=== PATIENT | male | born 1995 | race Caucasian/White ===

== ENCOUNTER → 2017-04-05 | Outpatient (CLI) | payer OTHER ==
[2017-04-05 11:01] LABS: BASO % 0.5 % (0.0-1.0); EOS # 0.2 10*3/uL (0.0-0.4); EOS % 2.4 % (1.0-4.0); HEMOGLOBIN 16.3 g/dl (14.0-18.0); LYMPH # 2.5 10*3/uL (1.3-4.4); LYMPH % 39.6 % (27.0-41.0); MEAN CELL VOLUME 92.8 fl (80.0-94.0); MEAN CORPUSCULAR HGB 30.9 pg (27.0-31.0); MEAN CORPUSCULAR HGB CONC 33.3 g/dl (33.0-37.0); MEAN PLATELET VOLUME 9.3 fl (9.6-12.3); MONO # 0.6 10*3/uL (0.1-1.0); MONO % 9.5 % (3.0-9.0); NEUT % 47.7 % (47.0-73.0); PLATELET COUNT AUTOMATED 277 10*3/uL (130-400); RED BLOOD COUNT 5.28 10*6/uL (4.50-5.90); RED CELL DISTRI WIDTH 12.8 % (0-14.5); WHITE BLOOD COUNT 6.3 10*3/uL (4.8-10.8)
[2017-04-05 11:31] LABS: ALKALINE PHOSPHATASE 58 U/L (45-117); BUN 17 mg/dl (7-24); CARBON DIOXIDE 27 mmol/L (21-32); CHLORIDE 107 mmol/L (98-107); CHOLESTEROL 188 mg/dL (<200); EST GLOM FILT AFRICAN AMERICAN > 60 ml/min; GLUCOSE 97 mg/dL (65-99); HDL CHOLESTEROL 51 mg/dl (40-60); LDL CHOLESTEROL 123 mg/dL (9-159); POTASSIUM 4.1 mmol/L (3.5-5.1); SGOT/AST 16 IU/L (3-35); SGPT/ALT 32 U/L (12-78); SODIUM 140 mmol/L (136-145); TOTAL PROTEIN 7.3 gm/dL (6.4-8.2); TRIGLYCERIDES 68 mg/dl (<150); VLDL CHOLESTEROL 14 mg/dL (6-40)
[2017-04-05 11:38] LABS: THYROID STIM HORMONE (HS) 0.854 uIU/ml (0.358-4.75)
== END | disposition home or self-care (01) ==
LOC: LAB 10:31
PROVIDERS: Internal Medicine
DX: R68.82 Decreased libido (principal); R53.82 Chronic fatigue, unspecified; R79.9 Abnormal finding of blood chemistry, unspecified

== ENCOUNTER → 2017-04-23 | Outpatient (CLI) | payer OTHER ==
[2017-04-24 07:06] LABS: FOLLICLE STIMULATING HORMONE 4.6 mIU/mL (1.5-12.4); LUTEINIZING HORMONE 004283 5.8 mIU/mL (1.7-8.6)
[2017-04-24 22:07] LABS: TESTOSTERONE FREE, (DIRECT) 15.1 pg/mL (9.3-26.5)
== END | disposition home or self-care (01) ==
LOC: LAB 11:10
PROVIDERS: Internal Medicine
DX: E29.1 Testicular hypofunction (principal)

== ENCOUNTER → 2017-05-31 | Outpatient (CLI) | payer OTHER | END | disposition home or self-care (01) | LOC: MRI 07:51 | DX: E23.0 Hypopituitarism (principal) ==

== ENCOUNTER → 2017-08-31 | Outpatient (CLI) | payer OTHER | END | disposition home or self-care (01) | LOC: LAB 08:00 | DX: J11.1 Influenza due to unidentified influenza virus with other respiratory manifestations (principal) ==

== ENCOUNTER → 2017-12-02 | Outpatient (CLI) | payer OTHER ==
[2017-12-02 09:33] LABS: VITAMIN D, 25-HYDROXY 38.3 ng/mL (30-100)
[2017-12-03 06:13] LABS: ESTRADIOL 68.9 pg/mL (7.6-42.6); PROLACTIN 004465 1.2 ng/mL (4.0-15.2)
== END | disposition home or self-care (01) ==
LOC: LAB 07:56
PROVIDERS: Internal Medicine
DX: E55.9 Vitamin D deficiency, unspecified (principal); R68.82 Decreased libido; R53.83 Other fatigue; E23.0 Hypopituitarism

== ENCOUNTER → 2018-07-11 | Outpatient (CLI) | payer OTHER | LOC: RESCLI 09:16 | DX: L98.9 Disorder of the skin and subcutaneous tissue, unspecified (principal) ==

== ENCOUNTER → 2018-10-14 | Outpatient (CLI) | payer OTHER ==
[~2018-10-14] MED LIST: KEFLEX500 M1 PO; Motrin,Rufen800 MG PO; NORCO 5-325 TA1 EACH PO
[2018-10-14 09:03] LABS: BUN 17 mg/dl (7-24); CHLORIDE 107 mmol/L (98-107); CREATININE 1.27 mg/dL (0.70-1.30); FREE T4 0.89 ng/dl (0.76-1.46); POTASSIUM 3.9 mmol/L (3.5-5.1); SODIUM 141 mmol/L (136-145)
[2018-10-14 09:09] LABS: THYROID STIM HORMONE (HS) 0.857 uIU/ml (0.358-4.75)
[2018-10-15 07:07] LABS: PROLACTIN 004465 15.6 ng/mL (4.0-15.2)
== END | disposition home or self-care (01) ==
LOC: LAB 08:11
PROVIDERS: Internal Medicine
DX: E55.9 Vitamin D deficiency, unspecified (principal); D35.2 Benign neoplasm of pituitary gland; E34.9 Endocrine disorder, unspecified; E29.1 Testicular hypofunction

== ENCOUNTER 2018-10-17 10:54 | Emergency (ER) | payer OTHER ==
[~2018-10-17] VITALS: Ht 177.8 cm; Wt 106.1 kg
[2018-10-17] MEDS ORDERED: Motrin,Rufen800 MG PO (12:34)
[2018-10-17] MEDS ORDERED: KEFLEX500 M1 PO (12:34)
[2018-10-17] MEDS ORDERED: NORCO 5-325 TA1 EACH PO (12:35)
== END 2018-10-17 12:52 | disposition home or self-care (01) ==
LOC: ED 10:54
DX: S62.521B Displaced fracture of distal phalanx of right thumb, initial encounter for open fracture (principal); S61.011A Laceration without foreign body of right thumb without damage to nail, initial encounter; W24.0XXA Contact with lifting devices, not elsewhere classified, initial encounter; Y93.B9 Activity, other involving muscle strengthening exercises; Y92.39 Other specified sports and athletic area as the place of occurrence of the external cause; Y99.8 Other external cause status

== ENCOUNTER → 2019-08-31 | Outpatient (CLI) | payer OTHER | END | disposition home or self-care (01) | LOC: RESCLI 13:05 | DX: Z00.00 Encounter for general adult medical examination without abnormal findings (principal); L98.9 Disorder of the skin and subcutaneous tissue, unspecified ==

== ENCOUNTER → 2019-09-06 | Outpatient (CLI) | payer OTHER ==
[2019-09-06 07:38] LABS: BASO # 0.1 10*3/uL (0.0-0.1); BASO % 0.5 % (0.0-1.0); EOS # 0.2 10*3/uL (0.0-0.4); EOS % 2.4 % (1.0-4.0); HEMATOCRIT 45.7 % (42.0-52.0); HEMOGLOBIN 15.1 g/dl (14.0-18.0); LYMPH # 4.7 10*3/uL (1.3-4.4); LYMPH % 46.4 % (27.0-41.0); MEAN CELL VOLUME 94.4 fl (80.0-94.0); MEAN CORPUSCULAR HGB 31.2 pg (27.0-31.0); MEAN PLATELET VOLUME 9.9 fl (9.6-12.3); MONO # 0.6 10*3/uL (0.1-1.0); MONO % 6.1 % (3.0-9.0); NEUT # 4.5 10*3/uL (2.3-7.9); NEUT % 44.3 % (47.0-73.0); PLATELET COUNT AUTOMATED 340 10*3/uL (130-400); RED BLOOD COUNT 4.84 10*6/uL (4.50-5.90); RED CELL DISTRI WIDTH 12.5 % (0-14.5); WHITE BLOOD COUNT 10.1 10*3/uL (4.8-10.8)
[2019-09-06 07:51] LABS: ALBUMIN 4.5 gm/dl (3.1-4.5); ALKALINE PHOSPHATASE 50 U/L (45-117); BUN 11 mg/dl (7-24); CHLORIDE 105 mmol/L (98-107); CHOLESTEROL 179 mg/dL (<200); CREATININE 1.24 mg/dL (0.70-1.30); FREE T4 0.93 ng/dl (0.76-1.46); HDL CHOLESTEROL 63 mg/dl (40-60); LDL CHOLESTEROL 104 mg/dL (9-159); POTASSIUM 3.7 mmol/L (3.5-5.1); SGOT/AST 9 IU/L (3-35); SGPT/ALT 31 U/L (12-78); SODIUM 139 mmol/L (136-145); TOTAL PROTEIN 7.4 gm/dL (6.4-8.2); TRIGLYCERIDES 58 mg/dl (<150); VLDL CHOLESTEROL 12 mg/dL (6-40)
[2019-09-08 07:09] LABS: PROLACTIN 004465 11.3 ng/mL (4.0-15.2)
== END | disposition home or self-care (01) ==
LOC: LAB 06:09
PROVIDERS: Internal Medicine
DX: Z13.220 Encounter for screening for lipoid disorders (principal); E29.1 Testicular hypofunction; D35.2 Benign neoplasm of pituitary gland

== ENCOUNTER → 2019-10-02 | Day surgery (SDC) | payer OTHER ==
[~2019-10-02] VITALS: Ht 177.8 cm; Wt 93.9 kg
[2019-10-02 07:54] VITALS: BP 127/64
[2019-10-02 08:05] VITALS: BP 126/49
[2019-10-02 08:10] VITALS: BP 129/65
[2019-10-02 08:15] VITALS: BP 119/53
[2019-10-02 08:20] VITALS: BP 120/76
[2019-10-02 08:25] VITALS: BP 118/61
== END | disposition home or self-care (01) ==
LOC: SDC 09-30 13:15
DX: I78.1 Nevus, non-neoplastic (principal); L98.8 Other specified disorders of the skin and subcutaneous tissue

== ENCOUNTER → 2021-04-11 | Outpatient (CLI) | payer OTHER | END | disposition home or self-care (01) | LOC: RESCLI 01:04 | PROVIDERS: ATTEND Internal Medicine | DX: D35.2 Benign neoplasm of pituitary gland (principal); N62 Hypertrophy of breast; F17.210 Nicotine dependence, cigarettes, uncomplicated; Z72.89 Other problems related to lifestyle; Z98.890 Other specified postprocedural states ==

== ENCOUNTER → 2021-04-12 | Outpatient (CLI) | payer OTHER | END | disposition home or self-care (01) | LOC: LAB 06:31 | PROVIDERS: ATTEND Student in an Organized Health Care Education/Training Program | DX: N62 Hypertrophy of breast (principal); D35.2 Benign neoplasm of pituitary gland ==

== ENCOUNTER → 2021-04-18 | Outpatient (CLI) | payer OTHER | END | disposition home or self-care (01) | LOC: RESCLI 00:53 | PROVIDERS: ATTEND Internal Medicine | DX: D35.2 Benign neoplasm of pituitary gland (principal); N62 Hypertrophy of breast; R68.82 Decreased libido; F17.210 Nicotine dependence, cigarettes, uncomplicated; Z79.899 Other long term (current) drug therapy; Z98.890 Other specified postprocedural states ==

== ENCOUNTER → 2021-04-25 | Outpatient (CLI) | payer OTHER | END | disposition home or self-care (01) | LOC: RESCLI 01:41 | PROVIDERS: ATTEND Internal Medicine | DX: N62 Hypertrophy of breast (principal); R68.82 Decreased libido; F17.210 Nicotine dependence, cigarettes, uncomplicated; Z79.899 Other long term (current) drug therapy; Z98.890 Other specified postprocedural states ==

== ENCOUNTER → 2021-05-04 | Outpatient (CLI) | payer OTHER ==
[2021-05-05 05:06] LABS: HEPATITIS B SURFACE AB Reactive (.)
== END | disposition home or self-care (01) ==
LOC: LAB 07:56
PROVIDERS: ATTEND Internal Medicine
DX: Z77.21 Contact with and (suspected) exposure to potentially hazardous body fluids (principal)

== ENCOUNTER → 2021-05-16 | Outpatient (CLI) | payer OTHER | END | disposition home or self-care (01) | LOC: RESCLI 00:31 | PROVIDERS: ATTEND Internal Medicine | DX: R68.82 Decreased libido (principal); Z79.899 Other long term (current) drug therapy; Z72.0 Tobacco use ==

== ENCOUNTER → 2021-06-08 | Outpatient (CLI) | payer OTHER ==
[2021-06-14 00:06] LABS: TESTOSTERONE FREE, (DIRECT) 31.9 pg/mL (9.3-26.5)
== END | disposition home or self-care (01) ==
LOC: LAB 06:35
PROVIDERS: ATTEND Internal Medicine
DX: R68.82 Decreased libido (principal)

== ENCOUNTER → 2021-06-16 | Outpatient (CLI) | payer OTHER | END | disposition home or self-care (01) | LOC: RESCLI 01:21 | PROVIDERS: ATTEND Internal Medicine | DX: R68.82 Decreased libido (principal); Z00.00 Encounter for general adult medical examination without abnormal findings; E66.9 Obesity, unspecified; F17.210 Nicotine dependence, cigarettes, uncomplicated; Z72.89 Other problems related to lifestyle; Z79.899 Other long term (current) drug therapy ==

== ENCOUNTER → 2022-05-04 | Outpatient (CLI) | payer BC ==
[2022-05-04 07:34] LABS: BASO # 0.1 10*3/uL (0.0-0.1); BASO % 0.7 % (0.0-1.0); EOS # 0.2 10*3/uL (0.0-0.4); EOS % 2.5 % (1.0-4.0); HEMATOCRIT 47.8 % (42.0-52.0); LYMPH # 2.3 10*3/uL (1.3-4.4); LYMPH % 34.5 % (27.0-41.0); MEAN CORPUSCULAR HGB 30.9 pg (27.0-31.0); MEAN CORPUSCULAR HGB CONC 33.3 g/dl (33.0-37.0); MEAN PLATELET VOLUME 8.9 fl (9.6-12.3); MONO # 0.5 10*3/uL (0.1-1.0); MONO % 7.3 % (3.0-9.0); NEUT # 3.7 10*3/uL (2.3-7.9); NEUT % 54.7 % (47.0-73.0); PLATELET COUNT AUTOMATED 330 10*3/uL (130-400); RED BLOOD COUNT 5.14 10*6/uL (4.50-5.90); RED CELL DISTRI WIDTH 12.7 % (0-14.5); WHITE BLOOD COUNT 6.7 10*3/uL (4.8-10.8)
[2022-05-04 07:57] LABS: BUN 26 mg/dl (7-24); CHLORIDE 109 mmol/L (98-107); CHOLESTEROL 197 mg/dL (<200); POTASSIUM 4.5 mmol/L (3.5-5.1); SGOT/AST 10 IU/L (3-35); SGPT/ALT 25 U/L (12-78); SODIUM 141 mmol/L (136-145); TRIGLYCERIDES 57 mg/dl (<150)
[2022-05-04 07:59] LABS: ALKALINE PHOSPHATASE 57 U/L (45-117); LDL CHOLESTEROL 135 mg/dL (9-159); TOTAL PROTEIN 6.7 gm/dL (6.4-8.2)
== END | disposition home or self-care (01) ==
LOC: LAB 07:12
PROVIDERS: Family Medicine; ATTEND Family Medicine
DX: J45.909 Unspecified asthma, uncomplicated (principal); E29.1 Testicular hypofunction; E55.9 Vitamin D deficiency, unspecified; Z86.39 Personal history of other endocrine, nutritional and metabolic disease

== ENCOUNTER → 2022-07-27 | Outpatient (CLI) | payer BC ==
[2022-07-28 08:07] LABS: LUTEINIZING HORMONE 3.7 mIU/mL (1.7-8.6)
== END | disposition home or self-care (01) ==
LOC: LAB 07:38
PROVIDERS: ATTEND Urology
DX: Z12.5 Encounter for screening for malignant neoplasm of prostate (principal); R68.82 Decreased libido

== ENCOUNTER → 2022-10-17 | Outpatient (CLI) | payer BC | END | disposition home or self-care (01) | LOC: LAB 17:37 | PROVIDERS: ATTEND Urology | DX: R68.82 Decreased libido (principal) ==

== ENCOUNTER 2025-06-19 12:33 | Emergency (ER) | payer BC ==
[~2025-06-19] VITALS: Ht 177.8 cm; Wt 99.8 kg
[2025-06-19] MEDS ORDERED: RABIES IMMUNE GLOBULIN U RABIES IMMUNE GLOBULIN U IM ONE (13:00)
[2025-06-19] MEDS ORDERED: Rabies Vaccine 1 ML VIAL IM ONE (13:00)
[2025-06-19] MEDS ORDERED: AMOX-CLAV 875-1 EACH PO (13:03)
== END 2025-06-19 13:34 | disposition home or self-care (01) ==
LOC: ED 12:33
DX: S70.11XA Contusion of right thigh, initial encounter (principal); Z90.49 Acquired absence of other specified parts of digestive tract; Z23 Encounter for immunization; W54.0XXA Bitten by dog, initial encounter; Y93.89 Activity, other specified; Y92.89 Other specified places as the place of occurrence of the external cause; Y99.8 Other external cause status

== ENCOUNTER 2025-06-22 13:19 | Emergency (ER) | payer BC ==
[~2025-06-22] VITALS: Ht 175.2 cm; Wt 99.8 kg
[~2025-06-22 13:19] MED LIST changes: +AMOX-CLAV 875-1 EACH PO
[2025-06-22] MEDS ORDERED: Rabies Vaccine 1 ML VIAL IM ONE (13:30)
== END 2025-06-22 13:54 | disposition home or self-care (01) ==
LOC: ED 13:19
DX: Z23 Encounter for immunization (principal); J45.909 Unspecified asthma, uncomplicated; Z90.89 Acquired absence of other organs

== ENCOUNTER 2025-06-26 15:55 | Emergency (ER) | payer BC ==
[2025-06-26] MEDS ORDERED: Rabies Vaccine 1 ML VIAL IM ONE ×2 (16:20→16:25)
== END 2025-06-26 16:38 | disposition home or self-care (01) ==
LOC: ED 15:55
DX: Z23 Encounter for immunization (principal); J45.909 Unspecified asthma, uncomplicated

== ENCOUNTER 2025-07-03 12:14 | Emergency (ER) | payer BC ==
[~2025-07-03] VITALS: Ht 175.2 cm; Wt 99.8 kg
[2025-07-03] MEDS ORDERED: Rabies Vaccine 1 ML VIAL IM ONE (12:30)
== END 2025-07-03 12:58 | disposition home or self-care (01) ==
LOC: ED 12:14
DX: Z20.3 Contact with and (suspected) exposure to rabies (principal); J45.909 Unspecified asthma, uncomplicated; Z90.89 Acquired absence of other organs